=== PATIENT | female | born 2000 | race Hispanic/Latino ===

== ENCOUNTER 2019-07-27 18:25 | Emergency (ER) | payer SELFPAY ==
[2019-07-27 19:24] LABS: Urine Specific Gravity 1.025 (1.005-1.030)
[2019-07-27 19:24] LABS: Urine Blood 2+ (NEG); Urine Glucose NEGATIVE (NEG); Urine Protein NEGATIVE (NEG); Urine Specific Gravity 1.025 (1.005-1.030); Urine pH 6.5 (5.0-7.0)
[2019-07-27] MEDS ORDERED: KETOROLAC 30 MG/ML INJ ONE (19:27)
[2019-07-27] MEDS ORDERED: HYDROCODONE/APAP 5/325 MG TAB ONE (19:27)
--- NOTE | 2019-07-27 20:25 | EDPHYS ---
Physician Documentation [facility] Name: Joy Ace Age: 19 yrs Sex: Female : 2000 Arrival Date: 07/27/2019 Time: 18:30 Bed 16 Private MD: JAY Physician Oli Arenas HPI: 07/27 18:46 This 19 yrs old Female presents to ER via Ambulatory with complaints of Low jmm Back Pain. 18:46 The patient presents with pain that is acute. The symptoms are located in the low back. jmm The pain does not radiate. Onset: The symptoms/episode began/occurred gradually, today. Modifying factors: The patient symptoms are alleviated by nothing, the patient symptoms are aggravated by lifting, movement. Associated signs and symptoms: Pertinent negatives: abdominal pain, chest pain, dysuria, fever, hematuria, incontinence, numbness, tingling, weakness. 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 - Social history:: Smoking status: Patient/guardian denies using tobacco. - Ebola Screening: : Patient negative for fever greater than or equal to 101.5 degrees Fahrenheit, and additional compatible Ebola Virus Disease symptoms Patient denies exposure to infectious person Patient denies travel to an Ebola-affected area in the 21 days before illness onset No symptoms or risks identified at this time. ROS: 18:46 Constitutional: Negative for fever, chills, and weight loss, Cardiovascular: Negative jmm for chest pain, palpitations, and edema, Respiratory: Negative for shortness of breath, cough, wheezing, and pleuritic chest pain. 18:46 Back: Positive for pain with movement. 18:46 All other systems are negative. Exam: 18:46 Constitutional: This is a well developed, well nourished patient who is awake, alert, jmm and in no acute distress. Head/Face: atraumatic. Eyes: EOMI, no conjunctival erythema appreciated ENT: Moist Mucus Membranes Neck: Trachea midline, Supple Chest/axilla: Normal chest wall appearance and motion. Cardiovascular: Regular rate and rhythm. No edema appreciated Respiratory: Normal respirations, no respiratory distress appreciated Abdomen/GI: Non distended, soft 18:46 Skin: General appearance color normal MS/ Extremity: Moves all extremities, no obvious deformities appreciated, no edema noted to the lower extremities Neuro: Awake and alert, normal gait Psych: Behavior is normal, Mood is normal, Patient is cooperative and pleasant 18:46 Back: left lower lumbar muscle spasm, no vert pt tenderness appreciated. Vital Signs: 18:48 BP 129 / 72; Pulse 77; Resp 16; Temp 98; Pulse Ox 100% on R/A; Weight 90.72 kg; Height sg 5 ft. 4 in. (162.56 cm); Pain 6/10; 19:43 BP 111 / 56; Pulse 57; Resp 18; Pulse Ox 100% ; wh 20:28 BP 106 / 64; Pulse 53; Resp 18; Pulse Ox 100% on R/A; wh 18:48 Body Mass Index 34.33 (90.72 kg, 162.56 cm) sg MDM: 18:46 Patient medically screened. sarah 20:24 Data reviewed: vital signs, nurses notes. Counseling: I had a detailed discussion with chaz the patient and/or guardian regarding: the historical points, exam findings, and any diagnostic results supporting the discharge/admit diagnosis, lab results, radiology results, the need for outpatient follow up, to return to the emergency department if symptoms worsen or persist or if there are any questions or concerns that arise at home. ED course: Pain is relieved in the ED. Patient advised to follow up with pcp for reevaluation. patient otherwise given strict return precautions. Patient understood and agrees with the plan of care. . 07/27 19:09 Order name: Urine Dipstick--Ancillary (enter results); Complete Time: 19:30 [facility] 07/27 19:10 Order name: Urine --Ancillary (enter results); Complete Time: 19:30 [facility] 07/27 18:53 Order name: Urine Dipstick-Ancillary (obtain specimen); Complete Time: 19:20 [facility] 07/27 18:53 Order name: Urine Test (obtain specimen); Complete Time: 19:20 [facility] Administered Medications: 19:30 Drug: [place] 5 mg-325 mg 1 tabs Route: PO; 20:30 Follow up: Response: No adverse reaction; Pain is decreased 20:30 Follow up: Response: No adverse reaction; Pain is decreased; RASS: Alert and Calm (0) 19:30 Drug: Ketorolac 30 mg Route: IM; Site: right gluteus; 20:30 Follow up: Response: No adverse reaction; Pain is decreased Disposition: 07/28 08:31 Co-signature as Attending Physician, Oli Arenas MD I agree with the assessment and sarah plan of care. Disposition: 07/27/19 20:25 Discharged to Home. Impression: Muscle spasm of back. - Condition is Stable. - Discharge Instructions: Muscle Cramps and Spasms. - Prescriptions for Medrol (Anish) 4 mg Oral Tablets, Dose Pack - take 1 tablet by ORAL route as directed - follow package instructions; 1 packet. orphenadrine citrate 100 mg Oral Tablet Sustained Release - take 1 tablet by ORAL route 2 times per day As needed; 20 tablet. - Medication Reconciliation Form, Thank You Letter, Antibiotic Education, Prescription Opioid Use form. - Follow up: Private Physician; When: 2 - 3 days; Reason: Recheck today's complaints, Continuance of care, Re-evaluation by your physician. Signatures: Dispatcher [employer] EDPayam Laura RN RN sg Anderson, Corey, MD MD cha Mickail, Joel, PA PA jmm Habalo, Winsy Corrections: (The following items were deleted from the chart) 07/27 20:30 20:25 07/27/2019 20:25 Discharged to Home. Impression: Muscle spasm of back. Condition wh is Stable. Forms are Medication Reconciliation Form, Thank You Letter, Antibiotic Education, Prescription Opioid Use. Follow up: Private Physician; When: 2 - 3 days; Reason: Recheck today's complaints, Continuance of care, Re-evaluation by your physician. chaz
--- NOTE | 2019-07-27 20:25 | ER ---
Nurse's Notes [facility] Name: Joy Ace Age: 19 yrs Sex: Female : 2000 Arrival Date: 07/27/2019 Time: 18:30 Bed 16 Private MD: Diagnosis: Muscle spasm of back Presentation: 07/27 18:48 Presenting complaint: Patient states: Lower back pain that began while at work lifting sg boxes. pt denies injury or trauma. Transition of care: patient was not received from another setting of care. Onset of symptoms was July 27, 2019. Risk Assessment: Do you want to hurt yourself or someone else? Patient reports no desire to harm self or others. Initial Sepsis Screen: Does the patient meet any 2 criteria? No. Patient's initial sepsis screen is negative. Does the patient have a suspected source of infection? No. Patient's initial sepsis screen is negative. Care prior to arrival: None. 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 - Social history:: Smoking status: Patient/guardian denies using tobacco. - Ebola Screening: : Patient negative for fever greater than or equal to 101.5 degrees Fahrenheit, and additional compatible Ebola Virus Disease symptoms Patient denies exposure to infectious person Patient denies travel to an Ebola-affected area in the 21 days before illness onset No symptoms or risks identified at this time. Screenin:42 Abuse screen: Denies threats or abuse. Denies injuries from another. Nutritional wh screening: No deficits noted. Tuberculosis screening: No symptoms or risk factors identified. Fall Risk None identified. Assessment: 19:15 General: Appears in no apparent distress. Behavior is calm, cooperative, appropriate wh for age. Pain: Complains of pain in lower back Pain does not radiate. Pain currently is 8 out of 10 on a pain scale. Quality of pain is described as aching, Pain began 1 day ago. Neuro: Level of Consciousness is awake, alert, obeys commands, Oriented to person, place, time, situation, Appropriate for age. Cardiovascular: Capillary refill < 3 seconds. Respiratory: Airway is patent Respiratory effort is even, unlabored, Respiratory pattern is regular, symmetrical. GI: Abdomen is flat, non-distended. : No signs and/or symptoms were reported regarding the genitourinary system. EENT: No signs and/or symptoms were reported regarding the EENT system. Derm: Skin is intact, is healthy with good turgor, Skin is pink, warm \T\ dry. normal. Musculoskeletal: Circulation, motion, and sensation intact. 20:28 Reassessment: Patient appears in no apparent distress at this time. No changes from previously documented assessment. Patient and/or family updated on plan of care and expected duration. Pain level reassessed. Patient is alert, oriented x 3, equal unlabored respirations, skin warm/dry/pink. Patient states feeling better. Patient states symptoms have improved. Vital Signs: 18:48 BP 129 / 72; Pulse 77; Resp 16; Temp 98; Pulse Ox 100% on R/A; Weight 90.72 kg; Height sg 5 ft. 4 in. (162.56 cm); Pain 6/10; 19:43 BP 111 / 56; Pulse 57; Resp 18; Pulse Ox 100% ; wh 20:28 BP 106 / 64; Pulse 53; Resp 18; Pulse Ox 100% on R/A; wh 18:48 Body Mass Index 34.33 (90.72 kg, 162.56 cm) ED Course: 18:30 Patient arrived in ED. am2 18:43 Junior Ramos [facility] 18:43 Oli Arenas MD is Attending Physician. [facility] 18:47 Arm band placed on. sg 18:49 Triage completed. 18:59 Deena Dennis is Primary Nurse. 19:15 Patient has correct armband on for positive identification. Bed in low position. Call light in reach. Side rails up X 1. Pulse ox on. NIBP on. 20:29 No provider procedures requiring assistance completed. Patient did not have IV access during this emergency room visit. Administered Medications: 19:30 Drug: [place] 5 mg-325 mg 1 tabs Route: PO; 20:30 Follow up: Response: No adverse reaction; Pain is decreased 20:30 Follow up: Response: No adverse reaction; Pain is decreased; RASS: Alert and Calm (0) 19:30 Drug: Ketorolac 30 mg Route: IM; Site: right gluteus; 20:30 Follow up: Response: No adverse reaction; Pain is decreased Outcome: 20:25 Discharge ordered by MD. ware 20:29 Discharged to home ambulatory. 20:29 Condition: stable 20:29 Discharge instructions given to patient, Instructed on discharge instructions, follow up and referral plans. medication usage, POC Demonstrated understanding of instructions, follow-up care, medications, POC Prescriptions given X 2. 20:30 Patient left the ED. Signatures: Payam Mann RN RN Junior Dowell PA PA jmm Moreno, Amanda am2 Habalo, Winsy
[2019-07-27 20:43] VITALS: O2SAT 100
[2019-07-27 20:45] VITALS: TEMP 98
[2019-07-27 20:46] VITALS: BP 106/64
== END 2019-07-27 20:30 | disposition home or self-care (01) ==
LOC: ER 18:25
DX: M62.830 Muscle spasm of back (principal); Z88.0 Allergy status to penicillin
CPT/HCPCS: 81003; 81025; 96372; 99283